=== PATIENT | male | born 1965 | race African-American/Black ===

== ENCOUNTER 2017-11-18 17:45 | Emergency (ER) | payer MEDICARE, MEDICAID ==
[~2017-11-18] VITALS: Ht 180.3 cm; Wt 80.0 kg
[2017-11-18 18:50] VITALS: BP 143/92
== END 2017-11-18 22:35 | disposition home or self-care (01) ==
LOC: ER 20:17
DX: R55 Syncope and collapse (principal); I10 Essential (primary) hypertension; W19.XXXA Unspecified fall, initial encounter
CPT/HCPCS: 99283